=== PATIENT | female | born 2000 | race Caucasian/White ===

== ENCOUNTER 2020-10-20 12:41 | Emergency (ER) | payer OTHER ==
--- NOTE | 2020-10-20 14:00 | EDM.PDOC ---
ED HPI GENERAL MEDICAL PROBLEM - General Chief Complaint: Skin Complaint Stated Complaint: ALLERGIC REACTION Time Seen by Provider: 10/20/20 13:45 Source of Information: Reports: Patient History Limitations: Reports: No Limitations - History of Present Illness INITIAL COMMENTS - FREE TEXT/NARRATIVE: 20 yo female got stung on the R distal forearm yesterday. Today she has swelling of the dorsum of her hand and also the lateral forearm. No fever or chills. Took diphenhydramine 25 mg without much benefit. No SOB, hoarse voice or wheezing. Onset: Gradual Onset Date: 10/19/20 Duration: Hour(s):, Getting Worse (slowly) Location: Reports: Upper Extremity, Right Quality: Reports: Dull Severity: Mild Improves with: Reports: None Worsens with: Reports: Other (? time) Context: Denies: Other (see HPI) Associated Symptoms: Reports: No Other Symptoms Treatments PRINCIPAL DATA ARCHITECT: Reports: Other (see below) (Benedryl) - Related Data Allergies Allergy/AdvReac Type Severity Reaction Status Date / Time No Known Allergies Allergy Verified 10/20/20 13:14 Home Meds: Home Meds Benzoyl Peroxide [Acne Cream] 1 gm TOP ASDIRECTED 10/20/20 [History] Sertraline [Zoloft] 100 mg PO DAILY 10/20/20 [History] levonorgestreL [Kyleena] 1 unit .ROUTE ASDIRECTED 10/20/20 [History] Past Medical History Psychiatric History: Reports: Anxiety Other Hematologic History: limes Social & Family History - Caffeine Use Caffeine Use: Reports: Coffee - Recreational Drug Use Recreational Drug Use: No ED ROS GENERAL - Review of Systems Review Of Systems: See Below Constitutional: Reports: No Symptoms HEENT: Reports: No Symptoms Respiratory: Reports: No Symptoms Cardiovascular: Reports: No Symptoms GI/Abdominal: Reports: No Symptoms Skin: Reports: Erythema (RUE). Denies: Rash Neurological: Reports: No Symptoms ED EXAM, SKIN/RASH Exam: See Below Exam Limited By: No Limitations General Appearance: Alert, WD/WN, No Apparent Distress Ears: Normal External Exam, Normal Canal, Hearing Grossly Normal Nose: Normal Inspection, No Blood Throat/Mouth: Normal Inspection, Normal Lips, Normal Oropharynx, Normal Voice, No Airway Compromise Head: Atraumatic, Normocephalic Neck: Normal Inspection Respiratory/Chest: No Respiratory Distress, Lungs Clear, Normal Breath Sounds, No Accessory Muscle Use Cardiovascular: Regular Rate, Rhythm, No Edema Extremities: Normal Inspection, Normal Range of Motion, Non-Tender, No Pedal Edema Neurological: Alert, Oriented, CN II-XII Intact, Normal Cognition, No Motor/Sensory Deficits Psychiatric: Normal Affect, Normal Mood Skin: Warm, Dry, Intact, No Rash, Erythema (slight redness of R hand dorsally and R lateral forearm, considerable induration present. ), Increased Warmth (dorsum of R hand and R lateral forearm). No: Normal Color Location, Skin: Upper Extremity, Right Characteristics: Erythematous Associated features: Warmth, Induration Course - Vital Signs Last Recorded V/S: Last Vital Signs Temp 36.4 C 10/20/20 13:13 Pulse 70 10/20/20 13:13 Resp 16 10/20/20 13:13 BP 135/78 10/20/20 13:13 Pulse Ox 98 10/20/20 13:13 Departure - Departure Time of Disposition: 14:01 Disposition: Home, Self-Care 01 Condition: Good Clinical Impression: Local reaction to bee sting Qualifiers: Encounter type: initial encounter Injury intent: accidental or unintentional Qualified Code(s): T63.441A - Toxic effect of venom of bees, accidental (unintentional), initial encounter - Discharge Information *PRESCRIPTION DRUG MONITORING PROGRAM REVIEWED*: Not Applicable *COPY OF PRESCRIPTION DRUG MONITORING REPORT IN PATIENT REMY: Not Applicable Instructions: Bee, Wasp, or Hornet Sting, Adult Referrals: PCP,None [Primary Care Provider] - Additional Instructions: Diphenhydramine 50 mg every 4-6 hrs. Elevate and ice the affected area. Avoid scratching. Recheck as needed. Sepsis Event Note (ED) - Evaluation Sepsis Screening Result: No Definite Risk - Focused Exam Vital Signs: Vital Signs Temp Pulse Resp BP Pulse Ox 10/20/20 13:13 36.4 C 70 16 135/78 98
== END 2020-10-20 14:17 | disposition home or self-care (01) ==
LOC: JP.ED 12:41
DX: T63.441A Toxic effect of venom of bees, accidental (unintentional), initial encounter (principal)
CPT/HCPCS: 99282

== ENCOUNTER 2022-05-24 09:17 | Emergency (ER) | payer OTHER ==
[2022-05-24] MEDS ORDERED: Sodium Chloride 0.9% 10 ML Syringe FLUSH PRN (12:07)
[2022-05-24] MEDS ORDERED: Sodium Chloride 0.9% 1,000 ML IV SCH (12:15)
[2022-05-24] MEDS ORDERED: Sodium Chloride 0.9% 10 ML Syringe FLUSH ONE (12:25)
[2022-05-24] MEDS ORDERED: Sodium Chloride 0.9% 75 ML IV SCH (12:30)
[2022-05-24] MEDS ORDERED: Iopamidol 612 MG/ML 100 ML Bottle IV SCH (12:30)
[2022-05-24] MEDS ORDERED: cefTRIAXone 500 MG in Sodium Chloride 0.9% 50 ML IV ONE (13:07)
[2022-05-24] MEDS ORDERED: Azithromycin 250 MG Tab PO ONE (13:07)
[2022-05-24] MEDS ORDERED: Diphtheria,Pertussis(Acell),Tetanus Vaccine 0.5 ML Syringe IM ONE (13:07)
[2022-05-24] MEDS ORDERED: metroNIDAZOLE 250 MG Tab PO ONE (13:07)
== END 2022-05-24 14:35 | disposition home or self-care (01) ==
LOC: JP.ED 09:17
DX: T74.21XA Adult sexual abuse, confirmed, initial encounter (principal); Z23 Encounter for immunization
CPT/HCPCS: 70491; 81025; 90471; 90715; 96361; 96365; 99283; 99285-25; A9270-GY; J0696; J3490; J7030; Q9967